=== PATIENT | male | born 1990 | race Hispanic/Latino ===

== ENCOUNTER 2023-10-13 05:09 | Emergency (ER) | payer OTHER ==
[2023-10-13] MEDS ORDERED: Boostrix 0.5 ML (Tdap) VIAL (>/=7 yrs of age) ONE (05:46)
[2023-10-13] MEDS ORDERED: Ketorolac Tromethamine 10 MG TAB ONE (05:46)
== END 2023-10-13 06:12 | disposition home or self-care (01) ==
LOC: MADERS 05:09
DX: S62.637A Displaced fracture of distal phalanx of left little finger, initial encounter for closed fracture (principal); W22.8XXA Striking against or struck by other objects, initial encounter
CPT/HCPCS: 90471; 90715